=== PATIENT | female | born 1970 | race Caucasian/White ===

== ENCOUNTER 2017-09-13 12:25 | Emergency (ER) | payer SELFPAY ==
[2017-09-13 12:39] VITALS: BP 140/70
[2017-09-13] MEDS: Ketorolac 30 MG/ML SDV IVPUSH ONE (13:02)
[2017-09-13] MEDS: Sodium Chloride 0.9% 1,000 ML IV ONE (13:03)
[2017-09-13] MEDS: Metoclopramide 10 MG/2 ML SDV IVPUSH ONE (13:04)
[2017-09-13] MEDS: Famotidine 20 MG/2 ML SDV IVPUSH ONE (13:07)
--- NOTE | 2017-09-13 13:07 | EDM.PDOC ---
ED HPI GENERAL MEDICAL PROBLEM - General Chief Complaint: Gastrointestinal Problem Stated Complaint: upper abdominal pain Time Seen by Provider: 09/13/17 12:43 Source of Information: Reports: Patient History Limitations: Reports: No Limitations - History of Present Illness INITIAL COMMENTS - FREE TEXT/NARRATIVE: Patient is a 47-year-old female who presents to the emergency department this afternoon with a complaint of epigastric and right upper quadrant, pain. Patient states discomfort started at 1015 this morning, felt little nauseous and had one episode of vomiting. Patient states that she had breakfast this morning and felt fine. Patient denies chest pain, headache, fever, out of country travel, blood in vomit or bloody stool. Onset: Today Onset Date: 09/13/17 Onset Time: 10:15 Duration: Hour(s):, Waxing/Waning Quality: Reports: Ache Severity: Mild Improves with: Reports: None Worsens with: Reports: None Associated Symptoms: Reports: Nausea/Vomiting - Related Data Allergies Allergy/AdvReac Type Severity Reaction Status Date / Time No Known Drug Allergies Allergy Unknown none Verified 01/25/16 10:57 Home Meds: Home Meds Famotidine [Pepcid] 20 mg PO BID #20 tab 09/13/17 [Rx] Ondansetron [Zofran ODT] 4 mg PO Q6H PRN #10 tab.dis 09/13/17 [Rx] Past Medical History HEENT History: Reports: Impaired Vision Cardiovascular History: Reports: Afib, Other (See Below) Other Cardiovascular History: not currently on anticoagulation 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 Constitutional: Reports: No Symptoms HEENT: Reports: No Symptoms Respiratory: Reports: No Symptoms Cardiovascular: Reports: No Symptoms Endocrine: Reports: No Symptoms GI/Abdominal: Reports: Abdominal Pain, Nausea, Vomiting : Reports: No Symptoms Musculoskeletal: Reports: No Symptoms Skin: Reports: No Symptoms Neurological: Reports: No Symptoms Psychiatric: Reports: No Symptoms Hematologic/Lymphatic: Reports: No Symptoms Immunologic: Reports: No Symptoms ED EXAM, GI/ABD - Physical Exam Exam: See Below Exam Limited By: No Limitations General Appearance: Alert, WD/WN, No Apparent Distress Throat/Mouth: Normal Inspection, Normal Oropharynx, No Airway Compromise Head: Atraumatic, Normocephalic Neck: Normal Inspection, Supple Respiratory/Chest: No Respiratory Distress, Lungs Clear, Normal Breath Sounds, No Accessory Muscle Use, Chest Non-Tender Cardiovascular: Regular Rate, Rhythm, No Murmur, No Rub GI/Abdominal Exam: Normal Bowel Sounds, Soft, No Organomegaly, No Distention, No Abnormal Bruit, Tender (Clearly tender epigastric and right upper quadrant) Back Exam: Normal Inspection, Other (Minimal tenderness between scapula.). No: CVA Tenderness (L), CVA Tenderness (R) Extremities: Normal Inspection, No Pedal Edema Neurological: Alert, Oriented, Normal Cognition Psychiatric: Normal Affect, Normal Mood Skin Exam: Warm, Dry, Intact, Normal Color, No Rash Lymphatic: No Adenopathy Course - Vital Signs Last Recorded V/S: Last Vital Signs Temp 97.1 F 09/13/17 12:37 Pulse 67 09/13/17 12:37 Resp 22 H 09/13/17 12:37 BP 140/70 09/13/17 12:37 Pulse Ox 97 09/13/17 12:37 - Orders/Labs/Meds Orders: Active Orders 24 hr Category Date Time Status CBC WITH AUTO DIFF [HEME] Stat Lab 09/13/17 12:44 Ordered COMPREHENSIVE METABOLIC PN,CMP [CHEM] Stat Lab 09/13/17 12:44 Ordered LIPASE [CHEM] Stat Lab 09/13/17 12:44 Ordered UA W/MICROSCOPIC [URIN] Stat Lab 09/13/17 12:44 Ordered Sodium Chloride 0.9% @ 999 MLS/HR (1000ml) Med 09/13/17 12:48 Ordered Sodium Chloride 0.9% [Normal Saline] 1,000 ml IV .BOLUS Medication Orders Sodium Chloride (Normal Saline) 1,000 mls @ 999 mls/hr IV .BOLUS ONE Stop: 09/13/17 13:48 Meds: Medications Generic Name Dose Route Start Last Admin Trade Name Freq PRN Reason Stop Dose Admin Sodium Chloride 1,000 mls @ 999 mls/hr 09/13/17 12:48 Normal Saline IV 09/13/17 13:48 .BOLUS ONE Discontinued Medications Generic Name Dose Route Start Last Admin Trade Name Freq PRN Reason Stop Dose Admin Famotidine 20 mg 09/13/17 12:45 Pepcid IVPUSH 09/13/17 12:46 ONETIME ONE Ketorolac Tromethamine 30 mg 09/13/17 12:48 Toradol IVPUSH 09/13/17 12:49 ONETIME ONE Metoclopramide HCl 10 mg 09/13/17 12:45 Reglan IVPUSH 09/13/17 12:46 ONETIME ONE - Radiology Interpretation Free Text/Narrative:: Right upper quadrant ultrasound shows gallstones and sludge in gallbladder, and prominent common bowel duct without stones - Re-Assessments/Exams Free Text/Narrative Re-Assessment/Exam: 09/13/17 14:26 Patient afebrile, nontoxic appearing, vital signs stable. Pain relieved. Patient's primary care doctor is in [facility] and she will follow-up with them for a surgical referral. Patient will present to a ER in [place] if pain continues. Departure - Departure Time of Disposition: 14:32 Disposition: Home, Self-Care 01 Condition: Good Clinical Impression: Cholelithiasis without obstruction, Abdominal pain - Discharge Information Instructions: Cholelithiasis, [id number], Abdominal Pain, Adult, [id number] Referrals: PCP,Unobtain [Primary Care Provider] - Additional Instructions: Follow-up with your primary care provider in one to 2 days for surgical referral. - My Orders Last 24 Hours: My Active Orders 09/13/17 12:44 CBC WITH AUTO DIFF [HEME] Stat COMPREHENSIVE METABOLIC PN,CMP [CHEM] Stat LIPASE [CHEM] Stat UA W/MICROSCOPIC [URIN] Stat 09/13/17 12:48 Sodium Chloride 0.9% @ 999 MLS/HR (1000ml) Sodium Chloride 0.9% [Normal Saline] 1,000 ml IV .BOLUS - Assessment/Plan Last 24 Hours: My Active Orders 09/13/17 12:44 CBC WITH AUTO DIFF [HEME] Stat COMPREHENSIVE METABOLIC PN,CMP [CHEM] Stat LIPASE [CHEM] Stat UA W/MICROSCOPIC [URIN] Stat 09/13/17 12:48 Sodium Chloride 0.9% @ 999 MLS/HR (1000ml) Sodium Chloride 0.9% [Normal Saline] 1,000 ml IV .BOLUS Assessment:: Cholelithiasis Plan: Follow-up with PCP in [place] for surgical consultation
[2017-09-13 13:20] LABS: CHLORIDE,CL 105 mmol/L (98-115); SODIUM,NA 142 mmol/L (136-145)
== END 2017-09-13 15:00 | disposition home or self-care (01) ==
LOC: KA.ED 12:25
DX: K80.20 Calculus of gallbladder without cholecystitis without obstruction (principal); Z79.899 Other long term (current) drug therapy
CPT/HCPCS: 76705; 80053; 83690; 85025; 96361; 96374; 96375; 99284; J1885; J2765; J7030; S0028